=== PATIENT | female | born 1950 | race Caucasian/White ===

== ENCOUNTER 2016-07-12 16:40 | Emergency (ER) | payer OTHER ==
[~2016-07-12] VITALS: Ht 170.2 cm; Wt 102.1 kg
--- NOTE | ~2016-07-12 | EKG ---
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 : 1950 Requested By: Froilan Chaidez Order Number: [id number] MD: Moe North Measurements Intervals [place] Rate: 81 P: 49 VT: 184 QRS: -37 QRSD: 101 T: 14 QT: 398 QTc: 462 Interpretive Statements Sinus rhythm Inferior infarct, old Anterior infarct, old Baseline wander in lead(s) V6 Compared to ECG 04/30/2015 18:29:54 Left-axis deviation no longer present Poor R-wave progression no longer present Myocardial infarct finding still present Electronically Signed On 07-13-2016 8:08:48 CDT by Moe North [email or web address] <ELECTRONICALLY SIGNED> By: Moe North MD 07/13/16807 99 99 Moe North MD /EPI
[~2016-07-12 16:40] MED LIST: ACCUNEB SO1.25 MG/1 INH; ADVAIR HFA 45MC1 AER INH; ADVAIR HFA115 MCG/21; ALEVE220 M1 PO; ARTHRITIS PAIN650 M2 PO; ASCORBIC ACID500 M2 PO; BACTRIM DS TAB1 EACH PO; COLACE 100 MG100 MG PO; COUMADIN 5 MG TA5 M1 PO; COUMADIN7.5 MG PO; CRESTOR20 MG PO; EFFEXOR XR75 MG PO; ELIQUIS5 MG; ENOXAPARIN100 MG/11 SUBQ; ENOXAPARIN80 MG/0.8 SQ; GABAPENTIN100 MG PO; GEMFIBROZIL 60600 MG PO; HUMALOG100 UNIT/1 SUBQ; HYDROCHLOROTHIA25 M2 PO; HYDROCODONE-AP1 EAC6 PO; KEFLEX500 MG PO; LANTUS SC; LANTUS SUBQ; LEVAQUIN 500 M500 M2 PO; LEXAPRO 10 MG T10 M2 PO; LISINOPRIL40 MG PO; LOTREL 5-20 MG1 EACH PO; LOVASTAT10 PO; METHOCARBAMOL750 MG PO; NORCO 5-325 TA1 EACH PO; NORVASC 5 MG TAB5 MG PO; NOVOLOG100 UNIT/1 SQ; PERCOCET; PERCOCET 5-3251 EACH PO; POTASSIUM20 PO; PROTONIX40 M2 PO; TOPROL XL50 MG PO; TRAMADOL 50 MG50 MG PO; ULTRAM 50MG TAB50 MG PO; ULTRAM ER100 MG PO; WELLBUTRIN XL150 MG PO; XARELTO10 M1 PO; ZESTRIL20 MG PO; ZETIA10 MG PO
[2016-07-12 17:11] LABS: ABSOLUTE NEUTROPHILS 9.2 thou/uL (1.4-8.2); BASOPHILS 0.6 % (0.0-2.0); EOSINOPHILS 0.4 % (0.0-3.0); HEMATOCRIT 37.7 % (37.0-47.0); HEMOGLOBIN 12.4 gm/dL (12.0-15.0); LYMPHOCYTES 11.5 % (24.0-44.0); MCH 32.2 pg (26.0-34.0); MCV 97.6 fL (80.0-100.0); MONOCYTES 7.3 % (1.0-8.0); PLATELET COUNT 228 thou/uL (150-400); POLYS 80.2 % (36.0-66.0); RBC 3.86 mil/uL (4.20-5.00); RDW 17.4 % (10.5-14.5); WBC 11.4 thou/uL (4.0-11.0)
[2016-07-12 17:15] LABS: MANUAL DIFF NO
[2016-07-12 17:18] LABS: POTASSIUM 4.4 mmol/L (3.5-5.1)
[2016-07-12 17:23] LABS: ALBUMIN 3.1 g/dL (3.4-5.0); TOTAL BILIRUBIN 0.9 mg/dL (<0.1-1.0)
== END 2016-07-12 19:15 | disposition home or self-care (01) ==
LOC: ER 16:40
PROVIDERS: Emergency Medicine
DX: E11.649 Type 2 diabetes mellitus with hypoglycemia without coma (principal); S70.01XA Contusion of right hip, initial encounter; R63.8 Other symptoms and signs concerning food and fluid intake; I10 Essential (primary) hypertension; E78.00 Pure hypercholesterolemia, unspecified; J44.9 Chronic obstructive pulmonary disease, unspecified; F41.9 Anxiety disorder, unspecified; Z79.4 Long term (current) use of insulin; Z86.718 Personal history of other venous thrombosis and embolism; Z86.711 Personal history of pulmonary embolism; Z90.49 Acquired absence of other specified parts of digestive tract; W01.0XXA Fall on same level from slipping, tripping and stumbling without subsequent striking against object, initial encounter; Y93.89 Activity, other specified; Y92.89 Other specified places as the place of occurrence of the external cause; Y99.8 Other external cause status

== ENCOUNTER 2018-08-13 18:50 | Inpatient (IN) | payer OTHER ==
[~2018-08-13] VITALS: Ht 170.2 cm; Wt 102.1 kg
[2018-08-13 18:52] VITALS: BP 170/74
[2018-08-13] MEDS ORDERED: LIPITOR 20 MG T20 M1 PO (18:58)
[2018-08-13] MEDS ORDERED: TYLENOL325 MG PO (18:59)
[2018-08-13] MEDS ORDERED: BUSPIRONE HCL10 MG PO (19:00)
[2018-08-13] MEDS ORDERED: CLONAZEPAM 1 MG1 M1 PO (19:01)
[2018-08-13] MEDS ORDERED: LEXAPRO20 MG PO (19:07)
[2018-08-13 19:45] LABS: URINE BILIRUBIN NEGATIVE (Negative); URINE BLOOD NEGATIVE (Negative); URINE CLARITY CLEAR; URINE COLOR YELLOW; URINE GLUCOSE-RANDOM* NEGATIVE (Negative); URINE KETONES NEGATIVE (Negative); URINE NITRITE-REFLEX NEGATIVE (Negative); URINE PROTEIN (DIPSTICK) NEGATIVE (Negative); URINE UROBILINOGEN 0.2 E.U./dl (0.2-1.0)
[2018-08-13 19:46] LABS: URINE LEUKOCYTES-REFLEX 2+ (Negative)
[2018-08-13 19:52] LABS: AMP/METHAMP Negative (Negative); BARBITURATES Negative (Negative); BENZODIAZEPINES Negative (Negative); COCAINE Negative (Negative); METHADONE Negative (Negative); OPIATES Negative (Negative); PCP Negative (Negative)
[2018-08-13 19:54] LABS: HEMATOCRIT 40.4 % (37.0-47.0); HEMOGLOBIN 13.1 gm/dL (12.0-15.0); MCH 30.1 pg (26.0-34.0); MCHC 32.3 g/dL (28.0-37.0); MCV 93.2 fL (80.0-100.0); RBC 4.33 mil/uL (4.20-5.00); RDW 18.1 % (10.5-14.5); WBC 7.5 thou/uL (4.0-11.0)
[2018-08-13 19:54] LABS: BACTERIA-REFLEX 1-9 Few /HPF (None Seen); CASTS None Seen /LPF (None Seen); CRYSTALS None Seen /LPF (None Seen); SQUAMOUS >10 Many /LPF (0-3); URINE RBC 0-2 Rare /HPF (0-2)
[2018-08-13 20:02] LABS: ANION GAP 11 mmol/L (7-16); BUN 16 mg/dL (7-18); CALCIUM 9.3 mg/dL (8.5-10.1); CHLORIDE 109 mmol/L (98-107); CO2 26 mmol/L (21-32); GLUCOSE 206 mg/dL (74-106); POTASSIUM 3.9 mmol/L (3.5-5.1); SALICYLATE < 2.8 mg/dL (2.8-20.0); SODIUM 146 mmol/L (136-145)
[2018-08-13] MEDS ORDERED: FISH OIL 1,001000 M2 PO (20:12)
[2018-08-13] MEDS ORDERED: LISINOPRIL10 MG PO (20:13)
[2018-08-13] MEDS ORDERED: SPIRONOLACTONE25 M1 PO (20:15)
[2018-08-13] MEDS ORDERED: LIDODERM1 EACH TOP (20:17)
[2018-08-13] MEDS ORDERED: NOVOLOG100 UNIT/1 (20:20)
[2018-08-14 09:30] VITALS: BP 124/59
--- NOTE | 2018-08-14 09:55 | EKG ---
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 joseph : 1950 Requested By: Nilton Richter Order Number: [id number] MD: Gunner Kenney Measurements Intervals [place] Rate: 70 P: 37 CA: 206 QRS: -43 QRSD: 106 T: 40 QT: 402 QTc: 434 Interpretive Statements Sinus rhythm Ventricular premature complex Left axis deviation Poor R wave progression Compared to ECG 07/12/2016 17:00:32 Ventricular premature complex(es) now present Electronically Signed On 08-14-2018 9:55:28 CDT by Gunner Kenney [email or web address] ��������������������������������������������� <ELECTRONICALLY SIGNED> ���������������������������������������� By: Gunner Kenney MD, [facility] ��������������������������������������������� 08/14/18 [id number] Gunner Kenney MD, [facility] /EPI
[2018-08-14 11:00] VITALS: BP 124/59
[2018-08-14 11:40] LABS: FOLIC ACID 12.9 ng/mL (8.6-58.9); TSH 1.586 uIU/mL (0.358-3.740)
--- NOTE | 2018-08-14 12:36 | NUR ---
RECEIVED PT APPROX 1040. A/O. DENIES PAIN. NO NOTED SOA. NO NV. PT RESTING IN BED. SITTER AT BEDSIDE. WHEN ASKED IF PT HAVE THOUGHTS OF HARMING SELF SHE STATED NO BUT WHEN ASKED IF LIFE IS NOT WORTH LIVING PT ANSWERED YES AND BECAME VERY TEARFUL. REASSURANCE GIVEN. PT CALM AT THIS TIME. WILL CONT. TO MONITOR.
--- NOTE | 2018-08-14 17:08 | NUR ---
PT ADMITTED RELATED TO DEPRESSION. CM REVIEWED CHART AND SPOKE WITH CARE TEAM. CM MET WITH PT AT BEDSIDE THIS DAY. PT IS A&O X4. CM ROLE INTRODUCED. PT INDICATED HE LIVES ALONE IN AN APARTMENT WITH NO STEPS TO ENTER AND NO STEPS INSIDE. PT INDICATED SHE HAD USD A 4WW TO ASSSIT WITH MOBILITY [employer]. PT ALSO HAS HOME O2 THROUGH [place]. PT INDICATED THAT IF CARE TEAM RECOMMENDS INPATIENT PSYC STAY UPON DC THAT SHE WOULD BE AGREEABLE. CM TO FOLLOW INDICATED WITH DC PLANNING.
[2018-08-15 03:35] VITALS: BP 133/76
[2018-08-15 10:47] VITALS: BP 145/68
--- NOTE | 2018-08-15 11:26 | NUR ---
ASSESMENT COMPLETED. VSS. A/O. CHEERFUL BUT TEARFUL AT TIMES. NO NOTED SOA- [address] NO NV. BAD GIVEN BY CONSULTING UTILITY FORESTER. PT UP IN THE CHAIR AT THIS TIME. FAMILY AT BEDSIDE. WILL CONT. TO MONITOR.
--- NOTE | 2018-08-15 13:18 | NUR ---
RADHA GASTELUM ORDERED. PT VISITED BY RANDEE WILKERSON. PT NO CONCERNS AT THIS TIME. WILL CONT. TO MONITOR.
[2018-08-15 16:38] VITALS: BP 143/73
[2018-08-15 19:08] VITALS: BP 117/55
[2018-08-16 04:15] VITALS: BP 132/52
--- NOTE | 2018-08-16 07:47 | NUR ---
PT TEARFUL ON AND OFF. EATS AND DRINKS WELL. VSS. GETS IMPULSIVE SOMETIMES.
--- NOTE | 2018-08-16 16:02 | NUR ---
FAXED REFERRAL TO [facility] LEFT MSG WITH KRISTINA IN ADM TO REVIEW ANTICIPATE DC TOMORROW 08/17. FAXED REFERRAL TO [facility] SPOKE WITH JOSEPH IN ADM SHE RECEIVED REFERRAL AND WILL REVIEW NOTIFIED OF DC TOMORROW. FAXED REFERRAL TO [facility] SPOKE WITH LITTLE GRAY AND SHE RECEIVED REFERRAL AND WILL REVIEW. DCP TO FOLLOW.
--- NOTE | 2018-08-16 16:58 | NUR ---
s/w pt in room TO [facility] SKILLED REHAB PLACEMENT AND SHE IS INTERESTED IN THE [place] AREA. S/W HER DTR HALI BY PHONE AND INFORMED HER OF THIS AND PROVIDED HER WITH NAMES OF FACILITIES IN [place] AND [place]. SHE WILL S/W HER OTHER DTR MATT AND LET US KNOW THEIR CHOICES. INFORMED HER THAT PT MAY BE DISCHARGED EARLY TOMORROW. FOLLOWING TO ASSIST WITH DC PLANNING.
[2018-08-16 16:59] VITALS: BP 137/49
--- NOTE | 2018-08-16 17:07 | NUR ---
ASSUMED CARE OF PT AT 0700. ASSESSMENT CHARTED. A&O,X4. HAPPY AND PLEASANT AT BEGINNING OF SHIFT. TEARFUL AT TIMES DURING THE DAY. VSS. [address] NC [address], HOME O2 USE WITH COPD. DENIES PAIN. +1 EDEMA BILATERAL LEGS. WAITING FOR DISCHARGE PLANNING. PT IN STABLE CONDITION. CALL LIGHT WITHIN REACH. WILL CONTINUE TO MONITOR UNTIL EOS.
[2018-08-16 19:56] VITALS: BP 139/68
--- NOTE | 2018-08-16 22:56 | NUR ---
ASSESSMENT COMPLETED.PT WAS TEARFUL AT THE START OF SHIFT. ASSISTED TO MAKE CALL TO A FRIEND WHO IS OUT OF TOWN, PT STATED SHE FELT BETTER AFTERWARDS. SOME TYLENOL#3 ORDERED FOR BACK PAIN. PT ALSO HAD CLONAZEPAM RESTARTED JUST TO HELP HER RELAX AND SLEEP. SHE TOOK A SNACK AT . PT LAUGHING AND EVEN JOKINGLY SAID SHE MIGHT MEET 'SOMEONE ' AT THE SNF.THERAPEUTIC EAR PROVIDED ALL THROUGH . PT AT THIS TIME RESTING IN BED WITH EYES CLOSED.
[2018-08-17 04:40] VITALS: BP 140/58
[2018-08-17 05:27] LABS: PROTIME 10.8 Seconds (9.3-11.4)
[2018-08-17 07:20] VITALS: BP 153/67
--- NOTE | 2018-08-17 12:26 | NUR ---
FAXED REFERRAL TO [facility] SPOKE WITH GI[facility] IN ADM SHE CANNOT ACCEPT PT DUE TO PSYCHE ISSUES. FAXED REFERRAL TO [facility] SPOKE WITH GERSON IN ADM SHE RECEIVED REFERRAL AND IS REQUESTING NURSES NOTES THAT SHOWS THAT PT IN NOT ON 1:1 STILL. DCP FAXED NURSES NOTES AND THEY WILL GIVE FINAL ANSWER THIS AFTERNOON. DCP TO FOLLOW.
--- NOTE | 2018-08-17 15:14 | NUR ---
S/W DTR MATT THIS AMTO DISCUSS FACILITY MEDICAID VS COMMUNITY MEDICAID. ALSO TO DISCUSS THEIR CHOICES FOR SKILLED FACILITIES. DTR IS INTERESTED IN [id number]. ASKED DC LEARNING SUPPORT SERVICES DIRECTOR TO FAX REFERRALS. DTR [facility] THIS AFTERNOON AND WILL LET ME KNOW HER FACILITY OF CHOICE.
[2018-08-17 15:56] VITALS: BP 132/67
--- NOTE | 2018-08-17 16:23 | NUR ---
CALLED KRYSTA GUTIERREZ TO FOLLOW-UP AND SHE IS AT [facility] AND WANTS A REFERRAL SENT TO THEM. SHE IS THERE TALKING TO THEM NOW AND THEY HAVE ANOTHER FAMILY MEMBER THERE NO TOO.
--- NOTE | 2018-08-17 19:39 | NUR ---
ASSUMED CARE OF PT AT 0700. ASSESSMENT CHARTED. A&O,X4. PLEASANT AND HAPPY MOOD NOTED THIS AM AND AFTERNOON. TEARFUL AND ANXIOUS THIS EVENING, COMFORT GIVEN. [address] SKIN INTACT. VSS. ACHS, INSULIN GIVEN PER SLIDING SCALE NEEDED. PT IN STABLE CONDITION. WAITING FOR FACILITY PLACEMENT. END OF SHIFT.
[2018-08-17 20:24] VITALS: BP 150/47
--- NOTE | 2018-08-18 00:19 | NUR ---
PT DID NOT HAVE ANY TEARFUL EPISODES TONIGHT. COOPERATIVE WITH CARE. UP WITH ASSIT X 1 TO THE BATHROOM. VSS. BACK PAIN CONTROLLED BY TYL CODEINE. AFEBRILE.DENIES NAUSEA OR VOMITING. LOOKING FORWARD TO POSSIBLY D/C TOMORROW.
[2018-08-18 05:31] VITALS: BP 151/66
[2018-08-18 07:05] VITALS: BP 130/63
[2018-08-18 09:14] LABS: INR 1.4; PROTIME 14.8 Seconds (9.3-11.4)
--- NOTE | 2018-08-18 09:14 | HC ---
[facility] [place] [address] CONSULTATION Name: SARA DAILEY Room #: 420-P ADM IN M.R.#: [id number] Admission: 08/14/18 ������������������ Attend Phys: Paddy German MD Discharge: ������������������ Date of : 46 Report #: [id number] THIS REPORT FOR: //name// CC: Paddy German Natasha [facility] DATE OF SERVICE: 08/14/2018 INPATIENT PSYCHIATRY INITIAL EVALUATION ATTENDING PHYSICIAN: Paddy German MD CONSULTING PSYCHIATRIST: Paddy Santo DO REASON FOR CONSULTATION: Cognitive impairment, depression, evaluate for self-care failure. HISTORY OF PRESENT ILLNESS: This is a 67-year-old female who was brought to the Emergency Room. I am not quite clear if she was brought by her daughter or brought here by EMS, but the patient was allegedly having some suicidal ideations . After a relatively short examination, it is appearing more like morbid thoughts. She is oxygen dependent. She is disheveled, does live independently. She states that she is wanting assistance with things. The patient was seen by myself and Kimberly. She had a 1:1 sitter at that time. She was in somewhat constricted spirits. She acknowledged 9+ positives on geriatric depression scale including feeling her life is empty, often getting bored, not in good spirits most of the time, prefers to stay at home, feels she has more problems at most, feels worthless, feels situation is hopeless. In addition, the [facility] Mental State Examination was performed, which scored a 16/30. Deficits included the working memory of money management, question on verbal fluency, only 3/5 objects recalled, 1/2 reverse digit span, 3/4 for clock drawing and 6/8 on cued recall, slightly modified shape recognition to pointing to both questions. LABORATORY DATA: Initial laboratory workup showed vitamin B12 of 210, which has been replaced with folate of 12.9. TSH 1.586. Other laboratories from the Emergency Room, white count of 7.5, H and H of 13.1 and 40.4, platelet count 225. Urine is showing 2+ leukocyte esterase, positive wbc's, positive epithelial cells, positive bacteria. I think this will likely be a negative culture, however, we will see [facility] urine culture and additional information from the [facility] [address] [place] [address] CONSULTATION Name: SARA DAILEY Room #: 420-P ADM IN M.R.#: [id number] Admission: 08/14/18 ������������������ Attend Phys: Paddy German MD Discharge: ������������������ Date of : 46 Report #: [id number] Emergency Room and such. REVIEW OF SYSTEMS: CONSTITUTIONAL: Include negative for fever or chills. EYES: Negative for eye pain or visual change. HENT: Negative for rhinorrhea or sore throat. RESPIRATORY: Negative for cough or shortness of breath. CARDIOVASCULAR: Negative for chest pain, palpitations. GASTROINTESTINAL: Negative for abdominal pain, nausea, vomiting or diarrhea. GENITOURINARY: Negative for burning, urgency, frequency or hematuria. MUSCULOSKELETAL: Negative for back pain and muscle pain. SKIN: Negative for any rashes. NEUROLOGICAL: Negative for numbness, tingling or weakness. Otherwise, review of systems is negative. SOCIAL HISTORY: Alcohol, tobacco and recreational drug use is negative. ALLERGIES: NIACIN. CURRENT HOME MEDICATIONS: Include Lovenox, hydrochlorothiazide, pantoprazole, metoprolol, gabapentin, insulin glargine, amlodipine besylate, atorvastatin, buspirone, clonazepam, escitalopram, spironolactone, insulin aspart as well as lidocaine patch. PHYSICAL EXAMINATION: VITAL SIGNS: Weight 220 pounds, 99.79 kilos, pulse ox 96%, BP 170/74, temperature 36.4, pulse 72, respirations 20. MUSCULOSKELETAL: She is not ambulatory. GENERAL: She is an obese female. This is a well-developed, disheveled, female, seated upright in bed, oxygen nasal cannula attached. Attention limited. Concentration limited. Speech is normal rate and normal tone. Thought process is linear and goal directed. Thought content focused on "pen pal" situation. Memory impaired as described with delayed recall. Immediate recall is good and remote recall seems relatively intact. EKG was performed and showed no STEMI, occasional PVCs, Q-waves in V1 and V2. Other laboratory, salicylate less than 2.8. UDS was negative. FORMULATION: This is a 67-year-old obese female presenting with vague suicidal ideation and potential self-care failure with cognitive impairment. ASSESSMENT: Cognitive impairment, likely major depressive disorder, rule out major neurocognitive disorder. [facility] [address] [place] [address] CONSULTATION Name: SARA DAILEY Room #: 420-P [facility] IN M.R.#: [id number] Admission: 08/14/18 ������������������ Attend Phys: Paddy German MD Discharge: ������������������ Date of : 46 Report #: [id number] PLAN: I agree with starting Cynaocoablaamin 1000 mcg oral daily. I think it is worth restarting on Depakote to a dose of 1000 mg ER at bedtime, continue the gabapentin 600 mg 4 times a day. I elected to discontinue the Lexapro and buspirone given report of manic behaviors at times including giving item to strangers which she will likely be victimized by. Continue recommendations as stated, discontinue the BuSpar, discontinue the clonazepam, start Depakote ER 1000 mg at bedtime, level in 4-5 days and continue to maintain a safe environment. ��������������������������������������������� <ELECTRONICALLY SIGNED> ���������������������������������������� By: Paddy Santo DO ��������������������������������������������� 08/18/18 0914 2330 0218 Paddy Santo DO /nt
--- NOTE | 2018-08-18 09:46 | NUR ---
FAXED REFERRAL TO [facility] LEFT MSG WITH LUPILLO IN ADM THAT PT IS DC READY TODAY AND THAT PT'S FAMILY ALREADY TOURED.
[2018-08-18] MEDS ORDERED: COUMADIN7.5 MG PO (11:36)
[2018-08-18] MEDS ORDERED: ESCITALOPRAM OX10 MG PO (11:44)
[2018-08-18] MEDS ORDERED: DIVALPROEX SOD500 M1 PO (11:44)
--- NOTE | 2018-08-18 16:06 | NUR ---
ASSUMED CARE OF PT AT 0700. ASSESSMENT CHARTED. A&O,X4. HAPPY AFFECT NOTED. C/O CHRONIC LOWER BACK PAIN, PAIN MEDS GIVEN ORDERED. ACHS, INSULIN GIVEN PER SLIDING SCALE AND ORDERED. PT AMBULATES WITH X1 ASSIST AND WALKER. PT IN STABLE CONDITION. NEW DISCHARGE ORDERS. CM WORKING ON FACILITY PLACEMENT. DAUGHER AT BEDSIDE THIS AFTERNOON. WILL CONTINUE TO MONITOR.
--- NOTE | 2018-08-18 16:55 | NUR ---
RECEIVED WORD FROM [facility] THat they cannot accept pt. passed this on to dtr ranjit AND SHE WISHES REFERRAL TO [facility]PER[facility] FAXED THIS AND DELORIS OVERT HIS AFTERONOON TO DO THE ON-SITE EVAL AND THEY SAY THERE IS NOT A SKILLABLE NEED FOR PT. FAXED REFERRAL TO [facility] AND RECEIVED THE SAME ANSWER THAT THERE IS NO SKILLABLE NEED FOR PT. S/W DTR HALI WHO IS HERE NOW AND UPON ENTERING THE ROOM TO S/W HER FOR THE FIRST TIME THIS AFTERNOON SHE WAS VOICING FRUSTRATION OVER MOM NOT BEEN ABLE TO GO DIRECTLY HOME. WHEN ASKED IF MOM COULD STAY WITH HER OR HER SISTER HALI, SHE STOOD UP AND STARTED WALKING AWY FROM ME SAYING I WAS IMPLYING THAT THEY WERE NOT INVOLVED. TRIED TO TALK WITH HER FURTHER AND SHE CONTINUED TO JUST WALK AWAY FROM ME. CASE DISCUSSED WITH MATILDA BROWNING'S RN & SHE WILL CALL DR PARKER TO INFORM HIM. HAD DISCUSSED OPTION OF HH SERVICES BEFORE SHE WALKED AWAY.
[2018-08-18 17:39] VITALS: BP 130/63
--- NOTE | 2018-08-18 17:43 | NUR ---
OFFERED HH OPTIONS TO PT AND DTR HALI AND PT WISHES TO USE [facility], SHE HAS HAD THEM IN THE PAST. FAXED DC INSTRUCTIONS.
[2018-08-18] MEDS ORDERED: ENOXAPARIN100 MG/11 SUBQ (18:01)
[2018-08-18] MEDS ORDERED: VITAMIN B-12500 MCG PO (18:10)
[2018-08-18] MEDS ORDERED: GABAPENTIN100 MG PO (18:10)
[2018-08-18 18:11] VITALS: BP 130/63
[2018-08-21 09:54] VITALS: BP 130/63
== END 2018-08-18 18:52 | disposition home health service (06) | DRG 885 ==
LOC: ER 18:50 → 4E 08-14 09:21 → EROBS 08-14 09:21 → 4E 08-14 10:27
PROVIDERS: Emergency Medicine; Nurse Practitioner; ADMIT Hospitalist
DX: F32.2 Major depressive disorder, single episode, severe without psychotic features (principal); R45.851 Suicidal ideations; E87.0 Hyperosmolality and hypernatremia; I10 Essential (primary) hypertension; E11.9 Type 2 diabetes mellitus without complications; E78.00 Pure hypercholesterolemia, unspecified; J44.9 Chronic obstructive pulmonary disease, unspecified; F41.9 Anxiety disorder, unspecified; E78.5 Hyperlipidemia, unspecified; G31.84 Mild cognitive impairment of uncertain or unknown etiology; Z95.828 Presence of other vascular implants and grafts; Z86.718 Personal history of other venous thrombosis and embolism; Z79.4 Long term (current) use of insulin; Z86.711 Personal history of pulmonary embolism; Z90.49 Acquired absence of other specified parts of digestive tract; Z90.722 Acquired absence of ovaries, bilateral; Z88.1 Allergy status to other antibiotic agents
CPT/HCPCS: 10084